=== PATIENT | male | born 1940 | race Caucasian/White ===

== ENCOUNTER 2016-06-06 08:31 | Day surgery (SDC) | payer MEDICARE ==
[~2016-06-06] VITALS: Ht 174 cm; Wt 86.9 kg
[~2016-06-06 08:31] MED LIST: FISH1CAP47 PO; IBUP-1324 PO; LEVO175T39 PO; LR 1,000 ML IV SCH; MULT1CAP47 PO; TRIA1CAP35 PO; TURM500C8 PO
--- OUTSIDE RECORDS SUMMARY | 2016-06-06 08:34 | XMS REPORT | Referral Summary ---
Author Organization Unknown Address Unknown Phone Unavailable Care Team Providers Care Drill Press Hand Name Role Phone RogersPat Primary Care Physician [phone] Encounter [facility] [id number] Date(s): 04/14/14 - 04/14/14 [facility], Blayne Cowan, Otolaryngology [address] [place], [place] [address] Discharge Diagnosis: Cancer of thyroid Discharge Disposition: Home or Self Care Attending Physician: James Pruitt MD Admitting Physician: James Pruitt MD Referring Physician: James Pruitt MD Vital Signs No data available for this section Problem List No data available for this section Allergies, Adverse Reactions, Alerts Substance Reaction Severity Status codeine Active Medications ibuprofen 200 mg oral tablet 1 tabs, Oral, q6hr, as needed for pain, 0 Refill(s) Start Date: 08/11/13 Status: Ordered levothyroxine 200 mcg (0.2 mg) oral tablet See Instructions, 1 TABS ORAL DAILY, # 30 tabs, eRx: [facility] [id number] , 1 TABS ORAL DAILY Special Instructions: 1 TABS ORAL DAILY Start Date: 02/08/14 Status: Ordered multivitamin 1 tabs, Daily, 0 Refill(s) Start Date: 08/11/13 Status: Ordered triamterene-hydrochlorothiazide 37.5 mg-25 mg oral tablet See Instructions, 1 TABS ORAL DAILY, # 90 tabs, eRx: [id number] , 1 TABS ORAL DAILY Special Instructions: 1 TABS ORAL DAILY Start Date: 02/14/14 Status: Ordered Results No data available for this section Immunizations Vaccine Date Refusal Reason influenza virus vaccine, inactivated 11/24/13 influenza virus vaccine, live 12/31/12 influenza virus vaccine, live 01/15/12 Procedures Procedure Date Related Diagnosis Body Site Thyroid Social History Social History Type Response Smoking Status Former smoker Assessment and Plan No data available for this section
--- OUTSIDE RECORDS SUMMARY | 2016-06-06 08:34 | XMS REPORT | Referral Summary ---
Author Author [facility] Organization [facility] Address Unknown Phone Unavailable Care Team Providers Care Payer Specialist Name Role Phone Isidro Mcclure Primary Care Physician [phone] Encounter [facility] Date(s): 04/05/15 - 04/05/15 [facility] [place], [address] [place] [address] Discharge Disposition: 01-Home or Self Care Attending Physician: Isidro Mcclure DO Admitting Physician: Isidro Mcclure DO Vital Signs Most recent to 1 oldest [Reference Range]: Peripheral Pulse 59 bpm Rate [60-100 bpm] *LOW* (04/05/15 9:28 AM) Blood Pressure 150/85 mmHg [90-140/60-90 mmHg] *HI* (04/05/15 9:28 AM) SpO2 98 % (04/05/15 9:28 AM) Problem List No Known Problems Allergies, Adverse Reactions, Alerts Substance Reaction Severity Status codeine Active Medications cyclobenzaprine 10 mg oral tablet 10 mg 1 tabs, Oral, Bedtime (once a day), as needed for spasm, X 30 days, # 30 tabs, 0 Refill(s), Pharmacy: [id number], 1 tabs Oral Bedtime ( once a day),x30 days,PRN:as needed for spasm Start Date: 04/05/15 Stop Date: 05/05/15 Status: Ordered ibuprofen 200 mg oral tablet 1 tabs, Oral, q6hr, as needed for pain, 0 Refill(s) Start Date: 08/11/13 Status: Ordered levothyroxine 200 mcg (0.2 mg) oral tablet 200 mcg 1 tabs, Oral, Daily, X 90 days, # 90 tabs, 3 Refill(s), Pharmacy: [id number], 1 tabs Oral Daily,x90 days Start Date: 04/05/15 Stop Date: 03/30/16 Status: Ordered meloxicam 15 mg oral tablet 15 mg 1 tabs, Oral, Daily, # 30 tabs, 0 Refill(s), Pharmacy: [facility] [id number], 1 tabs Oral Daily Start Date: 04/05/15 Status: Ordered multivitamin 1 tabs, Daily, 0 Refill(s) Start Date: 08/11/13 Status: Ordered triamterene-hydrochlorothiazide 37.5 mg-25 mg oral tablet 1 tabs, Oral, Daily, # 90 tabs, 3 Refill(s), Pharmacy: [facility] [id number] Start Date: 04/05/15 Status: Ordered Results Hematology Most recent to 1 oldest [Reference Range]: WBC [4.8-10.8 6.0 10*3/uL 10*3/uL] (04/05/15 10:20 AM) RBC [4.60-6.20] 5.04 (04/05/15 10:20 AM) Hgb [14.0-18.0 16.0 gm/dL gm/dL] (04/05/15 10:20 AM) Hct [42.0-52.0 %] 46.1 % (04/05/15 10:20 AM) MCV [82.0-99.0 fL] 91.5 fL (04/05/15 10:20 AM) MCH [27.0-32.0 pg] 31.7 pg (04/05/15 10:20 AM) MCHC [32.0-36.0 34.7 gm/dL gm/dL] (04/05/15 10:20 AM) RDW [11.5-14.5 %] 13.8 % (04/05/15 10:20 AM) Platelet [150-400 213 10*3/uL 10*3/uL] (04/05/15 10:20 AM) MPV [8.8-14.8 fL] 10.7 fL (04/05/15 10:20 AM) Immature 0.2 % Granulocytes (04/05/15 10:20 AM) [0.0-1.0 %] Neutrophils [51-75 56 % %] (04/05/15 10:20 AM) Lymphocytes [20-46 32 % %] (04/05/15 10:20 AM) Monocytes [4-11 %] 9 % (04/05/15 10:20 AM) Eosinophils [0-4 %] 3 % (04/05/15 10:20 AM) Basophils [0-2 %] 1 % (04/05/15 10:20 AM) Neutro Absolute 3.33 10*3 [1.90-7.00 10*3] (04/05/15 10:20 AM) Lymph Absolute 1.91 10*3 [0.80-3.30 10*3] (04/05/15 10:20 AM) Dodge Absolute 0.53 10*3 [0.30-1.00 10*3] (04/05/15 10:20 AM) Eos Absolute 0.17 10*3 [0.00-0.50 10*3] (04/05/15 10:20 AM) Baso Absolute 0.05 10*3 [0.00-0.20 10*3] (04/05/15 10:20 AM) Chemistry Most recent to 1 oldest [Reference Range]: Sodium Lvl [135-144 140 mEq/L mEq/L] (04/05/15 10:20 AM) Potassium Lvl 4.2 mEq/L [3.5-5.2 mEq/L] (04/05/15 10:20 AM) Chloride [99-111 105 mEq/L mEq/L] (04/05/15 10:20 AM) CO2 [23-31 mEq/L] 28 mEq/L (04/05/15 10:20 AM) AGAP [3-20] 7 (04/05/15 10:20 AM) BUN [8-26 mg/dL] 22 mg/dL (04/05/15 10:20 AM) Glucose Lvl [70-99 99 mg/dL mg/dL] (04/05/15 10:20 AM) Creatinine Lvl 1.06 mg/dL [0.72-1.25 mg/dL] (04/05/15 10:20 AM) eGFR [>60 mL/min] >60 mL/min 1 (04/05/15 10:20 AM) Calcium Lvl 9.8 mg/dL [8.9-10.5 mg/dL] (04/05/15 10:20 AM) Albumin Lvl [3.4-4.8 4.6 gm/dL gm/dL] (04/05/15 10:20 AM) Total Protein 7.2 gm/dL [6.2-8.1 gm/dL] (04/05/15 10:20 AM) Globulin [1.8-4.0 2.6 gm/dL gm/dL] (04/05/15 10:20 AM) ALT [0-55 U/L] 37 U/L (04/05/15 10:20 AM) AST [5-34 U/L] 39 U/L *HI* (04/05/15:20 AM) Alk Phos [40-150 74 U/L U/L] (04/05/15:20 AM) Bili Total [0.2-1.2 0.9 mg/dL mg/dL] (04/05/15:20 AM) Chol [0-199 mg/dL] 201 mg/dL *HI* (04/05/15:20 AM) Trig [0-149 mg/dL] 96 mg/dL (04/05/15 10:20 AM) HDL [40-84 mg/dL] 61 mg/dL (04/05/15:20 AM) LDL [0-130 mg/dL] 121 mg/dL (04/05/15 10:20 AM) VLDL Cholesterol 19 mg/dL [0-28 mg/dL] (04/05/15:20 AM) Cardiac Risk 3.3 [0.0-5.7] (04/05/15 10:20 AM) T4 Free [0.7-1.5 1.3 ng/dL ng/dL] (04/05/15 10:20 AM) TSH with Reflex Free 0.08 T4 [0.35-4.94] *LOW* (04/05/15 10:20 AM) Hgb A1c [4.1-5.6 %] 5.5 % (04/05/15 10:20 AM) eAvg Glucose 111.2 mg/dL (04/05/15 10:20 AM) 1Result Comment: Multiply eGFR results by 1.21 for race. 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 EGD showed duodenal ulcer. Colonoscopy showed a tubular adenoma. 4He was rehospitalized with bleeding duodenal ulcer. Social History Social History Type Response Smoking Status Former smoker Assessment and Plan Extracted from: Title: Wellness visit, Author: Isidro Mcclure DO Date: 04/05/15 hypertension, hypothyroidism Assessment/Plan Adult onset hypothyroidism 1. TSH ordered today, we will adjust medication accordingly. 2. Prescription was refilled for a year. Ordered: TSH with Reflex Free T4 HTN (hypertension) 1. Blood pressure is a bit elevated today. 2. The pressure medication was refilled today, recommended following up in one month for reevaluation. 3. Low salt diet recommended. Low back pain 1. Back pain appears to be muscular in nature. 2. Discontinue Aleve. 3. Meloxicam 15 mg daily for 2-4 weeks. 4. Cyclobenzaprine 10 mg at bedtime for 2-4 weeks. 5. Warm compression and stretching exercises recommended. Ordered: cyclobenzaprine, 10 mg 1 tabs, Oral, Bedtime (once a day), as needed for spasm , X 30 days, # 30 tabs, 0 Refill(s), Pharmacy: [facility] [id number], 1 tabs Oral Bedtime (once a day),x30 days,PRN:as needed for spasm meloxicam, 15 mg 1 tabs, Oral, Daily, # 30 tabs, 0 Refill(s), Pharmacy: [facility] [id number], 1 tabs Oral Daily Visit for well man health check 1. This is a well-developed well-nourished 75-year-old gentleman who appears to be younger than his age. 2. Continue with healthy lifestyle changes. 3. Continue with daily exercise activity. 4. Screening labs ordered, report pending. 5. Follow-up yearly for wellness visit. Ordered: CBC w/ Differential Comprehensive Metabolic Panel Hemoglobin A1c Lipid Panel Periodic Comp Preventive Med 65+ years Est [address] Orders: levothyroxine, 200 mcg 1 tabs, Oral, Daily, X 90 days, # 90 tabs, 3 Refill(s), Pharmacy: [facility] [id number], 1 tabs Oral Daily,x90 days triamterene-hydrochlorothiazide, 1 tabs, Oral, Daily, # 90 tabs, 3 Refill(s), Pharmacy: [facility] [id number]
--- OUTSIDE RECORDS SUMMARY | 2016-06-06 08:34 | XMS REPORT | Referral Summary ---
Author Author [facility] Organization [facility] Address Unknown Phone Unavailable Care Team Providers Care Line Service Technician Name Role Phone Isidro Mcclure Primary Care Physician [phone] Encounter [facility] Date(s): 10/06/14 - 10/06/14 [facility] Internal Medicine [address] [place] [address] [place] [id number] Discharge Diagnosis: Allergic contact dermatitis Discharge Diagnosis: Essential hypertension Discharge Diagnosis: History of thyroid cancer Discharge Diagnosis: Personal history of colonic polyps Discharge Disposition: 01-Home or Self Care Attending Physician: Damaso Rogers MD Admitting Physician: Damaso Rogers MD Vital Signs Most recent to 1 oldest [Reference Range]: Temperature Tympanic 37.0 degC [36.6-38.1 degC] (10/06/14 8:52 AM) Peripheral Pulse 56 bpm Rate [60-100 bpm] *LOW* (10/06/14 8:52 AM) Respiratory Rate 16 br/min [14-20 br/min] (10/06/14 8:52 AM) Blood Pressure 140/80 mmHg [90-140/60-90 mmHg] (10/06/14 8:52 AM) Problem List No Known Problems Allergies, Adverse Reactions, Alerts Substance Reaction Severity Status codeine Active Medications cyclobenzaprine 10 mg oral tablet 10 mg 1 tabs, Oral, Bedtime (once a day), as needed for spasm, X 30 days, # 30 tabs, 0 Refill(s), Pharmacy: [id number], 1 tabs Oral Bedtime ( once a day),x30 days,PRN:as needed for spasm Start Date: 04/05/15 Stop Date: 05/05/15 Status: Ordered ibuprofen 200 mg oral tablet 1 tabs, Oral, q6hr, as needed for pain, 0 Refill(s) Start Date: 08/11/13 Status: Ordered levothyroxine 200 mcg (0.2 mg) oral tablet 200 mcg 1 tabs, Oral, Daily, takie 1/2 tab 3 days/wk and 1 tab rest of week., X 90 days, # 90 tabs, 3 Refill(s), Pharmacy: [email or web address] [id number], 1 tabs Oral Daily,x90 days Start Date: 04/05/15 Stop Date: 03/30/16 Status: Ordered meloxicam 15 mg oral tablet 15 mg 1 tabs, Oral, Daily, # 30 tabs, 0 Refill(s), Pharmacy: [email or web address] [id number], 1 tabs Oral Daily Start Date: 04/05/15 Status: Ordered multivitamin 1 tabs, Daily, 0 Refill(s) Start Date: 08/11/13 Status: Ordered triamterene-hydrochlorothiazide 37.5 mg-25 mg oral tablet 1 tabs, Oral, Daily, # 90 tabs, 3 Refill(s), Pharmacy: [email or web address] [id number] Start Date: 04/05/15 Status: Ordered Results No data available for [...] for papillary thyroid 2005 carcinoma Esophagogastroduodenoscopy, colonoscopy3 2004 Gastrointestinal bleeding4 2003 Back fusion 1984 Hemorrhoidectomy 1Partial synovectomy and chondroplasty of the patellofemoral joint 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 EGD showed duodenal ulcer. Colonoscopy showed a tubular adenoma. 4He was rehospitalized with bleeding duodenal ulcer. Social History Social History Type Response Smoking Status Former smoker Assessment and Plan Extracted from: Title: Ambulatory Patient Education Author: Damaso Rogers MD Date: Family Medicine Hypertension Hypertension, commonly called high blood pressure, is when the force of blood pumping through your arteries is too strong. Your arteries are the blood vessels that carry blood from your heart throughout your body. A blood pressure reading consists of a higher number over a lower number, such as 110/72. The higher number (systolic) is the pressure inside your arteries when your heart pumps. The lower number (diastolic) is the pressure inside your arteries when your heart relaxes. Ideally you want your blood pressure below 120/80. Hypertension forces your heart to work harder to pump blood. Your arteries may become narrow or stiff. Having hypertension puts you at risk for heart disease, stroke, and other problems. RISK FACTORS Some risk factors for high blood pressure are controllable. Others are not. Risk factors you cannot control include: Race. You may be at higher risk if you are . Age. Risk increases with age. Gender. Men are at higher risk than women before age 45 years. After age 65 , women are at higher risk than men. Risk factors you can control include: Not getting enough exercise or physical activity. Being overweight. Getting too much fat, sugar, calories, or salt in your diet. Drinking too much alcohol. SIGNS AND SYMPTOMS Hypertension does not usually cause signs or symptoms. Extremely high blood pressure (hypertensive crisis) may cause headache, anxiety, shortness of breath , and nosebleed. DIAGNOSIS To check if you have hypertension, your health care provider will measure your blood pressure while you are seated, with your arm held at the level of your heart. It should be measured at least twice using the same arm. Certain conditions can cause a difference in blood pressure between your right and left arms. A blood pressure reading that is higher than normal on one occasion does not mean that you need treatment. If one blood pressure reading is high, ask your health care provider about having it checked again. TREATMENT Treating high blood pressure includes making lifestyle changes and possibly taking medication. Living a healthy lifestyle can help lower high blood pressure. You may need to change some of your habits. Lifestyle changes may include: Following the DASH diet. This diet is high in fruits, vegetables, and whole grains. It is low in salt, red meat, and added sugars. Getting at least 2 1/2 hours of brisk physical activity every week. Losing weight if necessary. Not smoking. Limiting alcoholic beverages. Learning ways to reduce stress. If lifestyle changes are not enough to get your blood pressure under control, your health care provider may prescribe medicine. You may need to take more than one. Work closely with your health care provider to understand the risks and benefits. HOME CARE INSTRUCTIONS Have your blood pressure rechecked as directed by your health care provider. Only take medicine as directed by your health care provider. Follow the directions carefully. Blood pressure medicines must be taken as prescribed. The medicine does not work as well when you skip doses. Skipping doses also puts you at risk for problems. Do not smoke. Monitor your blood pressure at home as directed by your health care provider. SEEK MEDICAL CARE IF: You think you are having a reaction to medicines taken. You have recurrent headaches or feel dizzy. You have swelling in your ankles. You have trouble with your vision. SEEK IMMEDIATE MEDICAL CARE IF: You develop a severe headache or confusion. You have unusual weakness, numbness, or feel faint. You have severe chest or abdominal pain. You vomit repeatedly. You have trouble breathing. MAKE SURE YOU: Understand these instructions. Will watch your condition. Will get help right away if you are not doing well or get worse. Document Released: 2006 Document Revised: 02/01/2014 Document Reviewed: ExitCare Patient Information 2015 DOZ. This information is not intended to replace advice given to you by your health care provider. Make sure you discuss any questions you have with your health care provider. Follow Up With: Where: When: Damaso Rogers [address] [place] [address] Drive; [place] [address] Business ([employer] In 6 months 04/08/2015 Comments: Extracted from: Title: Office Visit Note Author: Damaso Rogers MD Date: 10/06/14 Assessment/Plan Allergic contact dermatitis Some of these areas may also be insect bites. He was advised to use hydrocortisone cream as needed. Essential hypertension He will resume generic Maxide 25 one pill daily. He will be scheduled for chemistry panel next month. Ordered: Comprehensive Metabolic Panel History of thyroid cancer He will continue with his thyroid ultrasound and blood tests next month. Personal history of colonic polyps He is due for repeat colonoscopy. He will be contacted later in this regard. Orders: triamterene-hydrochlorothiazide, 1 tabs, Oral, Daily, # 90 tabs, 1 Refill(s), [id number]
--- OUTSIDE RECORDS SUMMARY | 2016-06-06 08:34 | XMS REPORT | Referral Summary ---
Author Author [facility] [address] [facility] Otol[facility]ology Organization [facility] Address Unknown Phone Unavailable Care Team Providers Care Cotton Ball Machine Tender Name Role Phone Pat Rogers Primary Care Physician [phone] Encounter [facility] [id number] Date(s): 10/18/14 - 10/18/14 [facility] [address], Otolaryngology [address] [place], [place] [address] Discharge Diagnosis: Cicatrix Discharge Diagnosis: Radiation effect Discharge Diagnosis: Thyroid cancer Discharge Diagnosis: Vocal cord paresis Discharge Disposition: 01-Home or Self Care Attending Physician: James Pruitt MD Admitting Physician: James Pruitt MD Vital Signs No data available for this section Problem List No Known Problems Allergies, Adverse Reactions, Alerts Substance Reaction Severity Status codeine Active Medications ibuprofen 200 mg oral tablet 1 tabs, Oral, q6hr, as needed for pain, 0 Refill(s) Start Date: 08/11/13 Status: Ordered levothyroxine 200 mcg (0.2 mg) oral tablet See Instructions, 1 TABS ORAL DAILY, # 30 tabs, eRx: [facility] [id number] , 1 TABS ORAL DAILY Start Date: 12/16/14 Status: Ordered multivitamin 1 tabs, Daily, 0 Refill(s) Start Date: 08/11/13 Status: Ordered triamterene-hydrochlorothiazide 37.5 mg-25 mg oral tablet 1 tabs, Oral, Daily, # 90 tabs, 1 Refill(s), Pharmacy: [facility] [id number] Start Date: 10/06/14 Status: Ordered Results Chemistry Most recent to 1 oldest [Reference Range]: T4 Free [0.7-1.5 1.4 ng/dL ng/dL] (10/18/14 3:45 PM) TSH with Reflex Free 0.01 T4 [0.35-4.94] *LOW* (10/18/14 3:45 PM) Thyroglob Ab [0-5 <3 Intl Units/mL Intl Units/mL] (10/18/14 3:45 PM) Immunizations Vaccine Date Refusal Reason influenza virus vaccine, inactivated 11/24/13 influenza virus vaccine, live 12/31/12 influenza virus vaccine, live 01/15/12 Procedures Procedure Date Related Diagnosis Body Site Laryngoscopy, flexible fiberoptic; diagnostic 10/18/14 Left knee Arthroscopy, partial meniscectomy, 2009 chondroplasty Colonoscopy- adenomatous polyp 2008 Arthroscopy right knee with partial lateral 2007 meniscectomy1 Functional left Neck dissection with 2008 [...] smoker Assessment and Plan Extracted from: Title: Office Visit Note Author: James Pruitt MD Date: 10/18/14 Assessment/Plan 1.Vocal cord paresis 2.Cicatrix 3.Radiation effect Thyroid cancer Repeat thyroid bed sonogram and laboratory assessment recommended. He is to call the office for results. If he has stable findings, then another followup in 6-12 months will be recommended. A detailed discussion of the risks, benefits, and limitations of the treatment plan was performed with the patient. The patient had the opportunity to ask questions and appeared to understand the pertinent issues. Ordered: Free T4 Thyroglobulin Antibody TSH with Reflex Free T4 US Thyroid
--- OUTSIDE RECORDS SUMMARY | 2016-06-06 08:34 | XMS REPORT | Referral Summary ---
Author Author [facility] Organization [facility] Address Unknown Phone Unavailable Care Team Providers Care Outplacement Consultant Name Role Phone Isidro Mcclure Primary Care Physician [phone] Encounter [facility] Date(s): 07/13/15 - 07/13/15 [facility], [address] [place] [address] Discharge Disposition: 01-Home or Self Care Attending Physician: Isidro Mcclure DO Admitting Physician: Isidro Mcclure DO Vital Signs Most recent to 1 oldest [Reference Range]: Temperature Tympanic 36.2 degC [36.6-38.1 degC] *LOW* (07/13/15 2:18 PM) Apical Heart Rate 72 bpm [60-100 bpm] (07/13/15 2:18 PM) Blood Pressure 132/86 mmHg [90-140/60-90 mmHg] (07/13/15 2:18 PM) SpO2 95 % (07/13/15 2:18 PM) Problem List No Known Problems Allergies, Adverse Reactions, Alerts Substance Reaction Severity Status codeine Active Medications ibuprofen 200 mg oral tablet 1 tabs, Oral, q6hr, as needed for pain, 0 Refill(s) Start Date: 08/11/13 Status: Ordered levothyroxine 150 mcg (0.15 mg) oral tablet See Instructions, TAKE 1 TABLET BY MOUTH DAILY, # 90 tabs, eRx: [facility] [id number], TAKE 1 TABLET BY MOUTH DAILY Start Date: 05/19/15 Status: Ordered meloxicam 15 mg oral tablet 15 mg 1 tabs, Oral, Daily, # 30 tabs, 0 Refill(s), Pharmacy: [facility] [id number], 1 tabs Oral Daily Start Date: 04/05/15 Status: Ordered multivitamin 1 tabs, Daily, 0 Refill(s) Start Date: 08/11/13 Status: Ordered triamterene-hydrochlorothiazide 37.5 mg-25 mg oral tablet 1 tabs, Oral, Daily, # 90 tabs, 3 Refill(s), Pharmacy: [facility] [id number] Start Date: 07/13/15 Status: Ordered Ultram 50 mg oral tablet 50 mg 1 tabs, Oral, q6hr, as needed for pain, # 30 tabs, 0 Refill(s) Start Date: 07/13/15 Stop Date: 08/12/15 Status: Ordered Results No data available for this section Immunizations Vaccine Date Refusal Reason influenza virus vaccine, inactivated 11/24/13 influenza virus vaccine, live 12/31/12 influenza virus vaccine, live 01/15/12 Procedures Procedure Date Related Diagnosis Body Site Left knee Arthroscopy, partial meniscectomy, 2010 chondroplasty Colonoscopy- adenomatous polyp 2008 Arthroscopy right knee with partial lateral 2008 meniscectomy1 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
--- OUTSIDE RECORDS SUMMARY | 2016-06-06 08:34 | XMS REPORT | Continuity of Care Document ---
Author Author [facility] Organization [facility] Address Unknown Phone Unavailable Allergies Active Description Code Type Severity Reaction Onset Reported/Identified Relationship to Patient Clinical Status Yes codeine NKMA N/A N/A 06/10/2013 Medications Problems Procedures Results Encounters ACCT No. Visit Date/Time Discharge Status Pt. Type Provider Facility Loc./Unit Complaint [id number] 05/22/2016 13:10:00 2016 23:59:00 DIS Outpatient Lee Zepeda [facility] New Surg BLOOD IN STOOL FROM INSURANCE CO TEST [id number] 04/03/2016 14:14:00 2016 23:59:00 DIS Outpatient Isidro Mcclure [facility] New FM follow up stool test [id number] 03/01/2016 09:44:00 2016 23:59:00 DIS Outpatient Isidro Mcclure [facility] New FM 1 month HTN [id number] 01/30/2016 16:35:00 2015 23:59:00 DIS Outpatient Isidro Mcclure [facility] New FM TCPA HIGH BP [id number] 07/13/2015 14:11:00 2015 23:59:00 DIS Outpatient Isidro Mcclure [facility] New FM BACK PAIN AND MED CHECK [id number] 04/05/2015 09:24:00 2015 23:59:00 DIS Outpatient Isidro Mcclure [facility] New FM NPT EST CARE FROM DR WINN [id number] 10/18/2014 14:46:00 2014 23:59:00 DIS Outpatient James Pruitt [facility] FC ENT [place] THYROID [place] [id number] 10/06/2014 08:49:00 2014 23:59:00 DIS [facility] [id number] 01/05/2014 11:23:00 2013 23:59:00 DIS Outpatient Merlin Salinas [facility] C Mur En SOV/FU
--- OUTSIDE RECORDS SUMMARY | 2016-06-06 08:34 | XMS REPORT | Referral Summary ---
Author Author [facility] Organization [facility] Address Unknown Phone Unavailable Care Team Providers Care Community Health Coordinator Name Role Phone Anuamisha Isidro Primary Care Physician [phone] Encounter [facility] [id number] Date(s): 10/18/14 - 10/18/14 [facility] [address] [place], [place] [address] Discharge Diagnosis: Cicatrix Discharge Diagnosis: Radiation effect [...] days, # 30 tabs, 0 Refill(s), Pharmacy: [facility] [id number], 1 tabs Oral Bedtime ( once a [...] days, # 90 tabs, 3 Refill(s), Pharmacy: [facility] [id number], 1 tabs Oral Daily,x90 days Start Date: 04/05/15 Stop Date: 03/30/16 Status: Ordered meloxicam 15 mg oral tablet 15 mg 1 tabs, Oral, Daily, # 30 tabs, 0 Refill(s), Pharmacy: [facility] [id number], 1 tabs Oral Daily Start Date: 04/05/15 Status: Ordered multivitamin 1 tabs, Daily, 0 Refill(s) Start Date: 08/11/13 Status: Ordered triamterene-hydrochlorothiazide 37.5 mg-25 mg oral tablet 1 tabs, Oral, Daily, # 90 tabs, 3 Refill(s), Pharmacy: [facility] [id number] Start Date: 04/05/15 Status: Ordered Results Chemistry Most recent to [...] diagnostic 10/18/14 Left knee Arthroscopy, partial meniscectomy, 2010 chondroplasty Colonoscopy- adenomatous polyp 2009 Arthroscopy right knee with partial lateral 2008 meniscectomy1 Functional left Neck dissection with 2008 sternomastoid musculature flap2 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 EGD showed duodenal ulcer. Colonoscopy showed a tubular adenoma. 4He was rehospitalized with bleeding duodenal ulcer. Social History Social History Type Response Smoking Status Former smoker Assessment and Plan Extracted from: Title: Office Visit Note Author: aJmes Pruitt MD Date: 10/18/14 Assessment/Plan 1.Vocal cord [...]
--- OUTSIDE RECORDS SUMMARY | 2016-06-06 08:34 | XMS REPORT | Referral Summary ---
Author Author [facility] Organization [facility] Address Unknown Phone Unavailable Care Team Providers Care Saddle Stitching Machine Operator Name Role Phone Isidro Mcclure Primary Care Physician [phone] Encounter [facility] Date(s): 04/03/16 - 04/03/16 [facility] [address] [place] [id number] Discharge Diagnosis: Positive fecal occult blood test Discharge Diagnosis: Itching Discharge Disposition: 01-Home or Self Care Attending Physician: Isidro Mcclure DO Admitting Physician: Isidro Mcclure DO Vital Signs Most recent to 1 oldest [Reference Range]: Temperature Tympanic 36.8 degC [36.6-38.1 degC] (04/03/16 2:18 PM) Peripheral Pulse 86 bpm Rate [60-100 bpm] (04/03/16 2:18 PM) Respiratory Rate 18 br/min [14-20 br/min] (04/03/16 2:18 PM) Blood Pressure 128/76 mmHg [90-140/60-90 mmHg] (04/03/16 2:18 PM) SpO2 92 % (04/03/16 2:18 PM) Problem List No Known Problems Allergies, Adverse Reactions, Alerts Substance Reaction Severity Status codeine Active Medications hydrOXYzine hydrochloride 25 mg oral tablet 25 mg 1 tabs, Oral, q8hr, as needed for itching, # 40 tabs, 0 Refill(s), Pharmacy: [id number], 1 tabs Oral q8hr,PRN:as needed for itching Start Date: 04/03/16 Stop Date: 05/01/16 Status: Ordered ibuprofen 200 mg oral tablet 1 tabs, Oral, q6hr, as needed for pain, 0 Refill(s) Start Date: 08/11/13 Status: Ordered levothyroxine 150 mcg (0.15 mg) oral tablet See Instructions, TAKE 1 TABLET BY MOUTH DAILY, # 90 tabs, 5 Refill(s), Pharmacy : [facility] [id number], TAKE 1 TABLET BY MOUTH DAILY Start Date: 04/03/16 Status: Ordered multivitamin 1 tabs, Daily, 0 Refill(s) Start Date: 08/11/13 Status: Ordered triamterene-hydrochlorothiazide 37.5 mg-25 mg oral tablet 1 tabs, Oral, Daily, # 90 tabs, 3 Refill(s), Pharmacy: [facility] [id number] Start Date: 04/03/16 Status: Ordered Results No data available for this section Immunizations Given and Recorded Vaccine Date Status Refusal Reason influenza virus vaccine, inactivated 11/24/13 Recorded influenza virus vaccine, live 12/31/12 Given influenza virus vaccine, live 01/15/12 Given zoster vaccine live 04/03/16 Given Procedures Procedure Date Related Diagnosis Body Site Left knee Arthroscopy, partial meniscectomy, 2010 chondroplasty Colonoscopy- adenomatous polyp 2008 Arthroscopy right knee with partial lateral 2008 meniscectomy1 Functional left Neck dissection with 2008 sternomastoid musculature flap2 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 This is likely secondary to dry skin and mild eczema. 2. Hydroxyzine 25 mg Q 8 hrs as needed for itching. 3. Follow up if worsening presentation. Ordered: hydrOXYzine, 25 mg 1 tabs, Oral, q8hr, as needed for itching, # 40 tabs, 0 Refill(s), Pharmacy: [facility] [id number], 1 tabs Oral q8hr,PRN:as needed for itching Office Visit Level 4 Est 77000 Need for shingles vaccine 1. Immunizations given today. Positive fecal occult blood test 1. We will set him up for repeat screening C-scope with Dr Pozo. Ordered: hydrOXYzine, 25 mg 1 tabs, Oral, q8hr, as needed for itching, # 40 tabs, 0 Refill(s), Pharmacy: [facility], 1 tabs Oral q8hr,PRN:as needed for itching Office Visit Level 4 Est 89645
--- OUTSIDE RECORDS SUMMARY | 2016-06-06 08:34 | XMS REPORT | Referral Summary ---
Author Author [facility] Organization [facility] Address Unknown Phone Unavailable Care Team Providers Care Television Maintenance Worker Name Role Phone Pat Rogers Primary Care Physician [phone] Encounter [facility] [id number] Date(s): 10/18/14 - 10/18/14 [facility] [address] [place], [place] [address] Discharge Diagnosis: Cicatrix Discharge Diagnosis: Radiation [...] TABS ORAL DAILY, # 30 tabs, eRx: [facility] [id number] , 1 TABS ORAL DAILY Start Date: 12/16/14 Status: Ordered multivitamin 1 tabs, Daily, 0 Refill(s) Start Date: 08/11/13 Status: Ordered triamterene-hydrochlorothiazide 37.5 mg-25 mg oral tablet 1 tabs, Oral, Daily, # 90 tabs, 1 Refill(s), Pharmacy: [facility] [id number] Start Date: 10/06/14 Status: Ordered Results Chemistry [...]
--- OUTSIDE RECORDS SUMMARY | 2016-06-06 08:34 | XMS REPORT | Summary of Care ---
Author Author Geovanna Juares APRN Organization Unknown Address [address] [place], [place] [address] Phone Unavailable Care Team Providers Care Sweet Pickle Maker Name Role Phone Geovanna Juares APRN Unavailable Unavailable Outside, Physician PP Unavailable Unavailable Unavailable Functional Status Functional Status Health Issues* Name Dates Details Functional status health issues are not documented Status: Cognitive Status Health Issues* Name Dates Details Cognitive status health issues are not documented Status: Problems Name Dates Details Acute upper respiratory infection (465.9, J06.9) Status: Active Medications Name Dates Details Levothyroxine Sodium TABS * Started 08-Jun-2015 ActiveAzithromycin 250 MG Oral Tablet TAKE 2 TABLETS ON DAY 1 THEN TAKE 1 TABLET A DAY FOR 4 DAYS. * Quantity: 1 Refills: 0 Geovanna Juares APRN* Started 08-Jun-2015 Active6 Tablet Disp Pack PredniSONE 20 MG Oral Tablet TAKE 3 TABLETS DAILY FOR 3 DAYS, THEN 2 TABLETS DAILY FOR 3 DAYS, THEN 1 TABLET DAILY FOR 3 DAYS. * Quantity: 18 Refills: 0 Geovanna Juares APRN* Started 08-Jun-2015 Active Allergies and Adverse Reactions Name Dates Details Codeine Derivatives Status: Active Procedures Procedure Dates Details Procedures not documented Immunization Name Dates Details Immunizations not documented Social History Smoking Status* Unknown if ever smoked Vital Signs Date Test Result Details 08-Jun-2015 09:43 BP Systolic 172 mm[Hg] Status: BP Diastolic 100 mm[Hg] Status: Temperature 98.4 f Status: Heart Rate 68 /min Status: O2 SAT 96 % Status: Results Date Description Value Details Results not documented Plan of Care Planned Observations* Name Dates Details Planned Goals not documented Goal Instructions * Instructions not documented Encounters Appointment; Geovanna Juares Encounter Diagnosis: Problem not documented On 08-Jun-2015 09:34
--- OUTSIDE RECORDS SUMMARY | 2016-06-06 08:34 | XMS REPORT | Summary of Care ---
Author Author Stephanie Burgess APRN Organization Unknown Address [address] [place], [place] [id number] Phone Unavailable Care Team Providers Care Med Asst Name Role Phone Stephanie Burgess APRN Unavailable Unavailable PCP Not Assigned Unavailable Unavailable Unavailable Unavailable Functional Status Name Dates Details Functional status health issues are not documented Status: Name Dates Details Cognitive status health issues are not documented Status: Problems Name Dates Details Acute sinusitis (461.9, J01.90) Status: Active Medications Name Dates Details Levothyroxine Sodium TABS * Start 08-Jun-2015 Active Azithromycin 250 MG Oral Tablet TAKE 2 TABLETS ON DAY 1 THEN TAKE 1 TABLET A DAY FOR 4 DAYS. * Quantity: 1 Refills: 0 Stephanie Burgess APRN * Start 25-Jan-2016 Active 6 Tablet Disp Pack Allergies and Adverse Reactions Name Dates Details Codeine Derivatives (Allergy) Status: Active Procedures Procedure Dates Details Procedures not documented Immunization Name Dates Details Immunizations not documented Social History Name Dates Details Unknown if ever smoked Vital Signs Date Test Result Details 25-Jan-2016 16:30 BP Systolic 162 mm[Hg] Status: Comments: Location: ; Position: BP Diastolic 100 mm[Hg] Status: Comments: Location: ; Position: Temperature 98.2 f Status: Comments: Method: Heart Rate 63 /min Status: Comments: Location: ; Physical Findings 95 Status: Comments: O2 Saturation Results Date Description Value Details Results not documented Plan of Care Name Dates Details Planned Observations Planned Goals not documented Interventions Provided Medication Changes* Azithromycin 250 MG Oral Tablet - Start Instructions Name Dates Details Instructions not documented Encounters Appointment; Geovanna Juares A.P.R.N. Encounter Diagnosis: Problem not documented On 08-Jun-2015 09:34
--- OUTSIDE RECORDS SUMMARY | 2016-06-06 08:35 | XMS REPORT | Referral Summary ---
Author Author [facility] Organization [facility] Address Unknown Phone Unavailable Care Team Providers Care Lithography Contact Worker Name Role Phone Pat Rogers Primary Care Physician [phone] Encounter [facility] [id number] Date(s): 10/18/14 - 10/18/14 [facility] [address] [place], [place] [address] Discharge Diagnosis: Cicatrix Discharge Diagnosis: [...] TABS ORAL DAILY, # 30 tabs, eRx: [facility] [id number] , 1 TABS ORAL DAILY Start Date: 12/16/14 Status: Ordered multivitamin 1 tabs, Daily, 0 Refill(s) Start Date: 08/11/13 Status: Ordered triamterene-hydrochlorothiazide 37.5 mg-25 mg oral tablet 1 tabs, Oral, Daily, # 90 tabs, 1 Refill(s), Pharmacy: [facility] [id number] Start Date: 10/06/14 Status: Ordered Results Chemistry [...]
--- OUTSIDE RECORDS SUMMARY | 2016-06-06 08:35 | XMS REPORT | Referral Summary ---
Author Author [facility] Organization [facility] Address Unknown Phone Unavailable Care Team Providers Care Eating Disorder Psychologist Name Role Phone Isidro Mcclure Primary Care Physician [phone] Encounter [facility] Date(s): 03/01/16 - 03/01/16 [facility], [address] [place] [address] Discharge Diagnosis: Chronic back pain Discharge Diagnosis: HTN (hypertension), benign Discharge Disposition: 01-Home or Self Care Attending Physician: Isidro Mcclure DO Admitting Physician: Isidro Mcclure DO Vital Signs Most recent to 1 oldest [Reference Range]: Peripheral Pulse 65 bpm Rate [60-100 bpm] (03/01/16 9:59 AM) Respiratory Rate 18 br/min [14-20 br/min] (03/01/16 9:59 AM) Blood Pressure 124/80 mmHg [90-140/60-90 mmHg] (03/01/16 9:59 AM) SpO2 95 % (03/01/16 9:59 AM) Problem List No Known Problems Allergies, Adverse Reactions, Alerts Substance Reaction Severity Status codeine Active Medications ibuprofen 200 mg oral tablet 1 tabs, Oral, q6hr, as needed for pain, 0 Refill(s) Start Date: 08/11/13 Status: Ordered levothyroxine 150 mcg (0.15 mg) oral tablet See Instructions, TAKE 1 TABLET BY MOUTH DAILY, # 30 tabs, 5 Refill(s), eRx: [id number], TAKE 1 TABLET BY MOUTH DAILY Start Date: 01/03/16 Status: Ordered multivitamin 1 tabs, Daily, 0 Refill(s) Start Date: 08/11/13 Status: Ordered triamterene-hydrochlorothiazide 37.5 mg-25 mg oral tablet 1 tabs, Oral, Daily, # 90 tabs, 3 Refill(s), [id number] Start Date: 07/13/15 Status: Ordered Results No data available for this section Immunizations Given and Recorded Vaccine Date Status Refusal Reason influenza virus vaccine, inactivated 11/24/13 Recorded influenza virus vaccine, live 12/31/12 Given influenza virus vaccine, live 01/15/12 Given Procedures Procedure Date Related Diagnosis Body [...] Visit Note Author: Isidro Mcclure DO Date: 03/01/16 Assessment/Plan 1.HTN (hypertension), benign 1. Blood pressure is controlled at this time. 2. Continue with low salt diet. 3. Continue with current medications. 4. Follow up in 6 months for farther management. Ordered: Office Visit Level 4 Est 23039 2.Chronic back pain 1. Continue with Tylenol 1000mg tid as needed for pay. 2. Consider PT if not improving. Ordered: Office Visit Level 4 Est 53921
[2016-06-06 08:42] VITALS: BP 178/103; PULSE 82; RESP 16; TEMP 98.3; O2SAT 93; Ht 174 cm; Wt 86.9 kg
[2016-06-06] MEDS ORDERED: LIDOCAINE 1% (10mg/ml) 2ml SDV ONE ×2 (09:41→11:04)
[2016-06-06] MEDS ORDERED: PROPOFOL 500mg 0 ML IV ONE (09:41)
--- NOTE | 2016-06-06 09:55 | ANESPREOP ---
Anesthesia Record Date and Time DATE: 06/06/16 TIME: 09:50 Pre-Op Diagnosis hx. of polyps Proposed Surgical Procedure COLONOSCOPY Allergies: Coded Allergies: codeine (Verified Allergy, Unknown, 06/06/16) Ht/Wt/BMI Height: 5 ' 8.50 " Weight: 86.900 kg BMI: 28.7 kg/m2 Vital Signs Date Time Temp Pulse Resp B/P Pulse Ox O2 Delivery O2 Flow Rate FiO2 06/06/16 08:42 98.3 82 16 178/103 93 Room Air Medications Inpatient Medications Current Medications Medications (Trade) Dose Ordered Sig/Juanpablo Start Time Stop Time Status Last Admin Dose Admin Lactated Ringer's (Lactated Ringers) 1,000 ml @ 30 mls/hr Q24H 06/06/16 07:00 06/06/16 09:28 30 MLS/HR Fish Oil/[place]-3 Fatty Acids (Fish Oil 1,200 Mg Softgel) 1 Cap Capsule, 1 CAP PO DAILY, (Reported) Last Taken: on Unknown Date & Time Ibuprofen (Ibuprofen) 200 Mg Tablet, 200 MG PO PRN, (Reported) Last Taken: on 06/03/16 Levothyroxine Sodium (Synthroid) 175 Mcg Tablet, 175 MCG PO DAILY, (Reported) Last Taken: on 06/06/16 0730 Multivitamins W-Minerals (Multivitamin) 1 Cap Capsule, 1 CAP PO DAILY, (Reported) Last Taken: on Unknown Date & Time Triamterene/Hydrochlorothiazid ( Triamterene-Hctz 37.5-25 Cp) 1 Cap Capsule, 1 CAP PO DAILY, (Reported) Last Taken: on 06/05/16 0700 Turmeric Root Extract (Turmeric) 500 Mg Capsule , 1-3 CAP PO DAILY, (Reported) Last Taken: on Unknown Date & Time Currently on Beta Dagoberto: No Medical/Surgical History Anesthesia PMH: Reports: *Hypertension, Arthritis (HANDS,LOWER BACK), Cancer ( THYROID), Obesity, Thyroid Disease (THYROID CANCER), Denies: *Angina, *Diabetes , *PR, Anesthesia Reactions (NO AIRWAY ISSUES), CHF, Clotting Problems, Deep Vein Thrombosis, Glaucoma, Hepatitis, Hiatal Hernia, Malignant Hyperthermia, Reflux, Renal Disease, Rheumatic Fever, Sleep Apnea Smoking Status: Former smoker Has pt. smoked today?: No Use Chewing Tobacco?: No Second Hand Exposure: No Substance Use Type: does not use Substance last used: unknown Alcohol Intake: daily Last Drink: unknown Past Surgical History Orthopedic Surgeries: Yes - BACK SURGERY,RT KNEE SCOPE Abdominal Surgeries: Genitourinary Surgeries: Cardiac Surgeries: Endocrine Surgeries: Yes - THYROIDECTOMY Reproductive Surgeries: Neurological Surgeries: Ear Surgeries: Nose Surgeries: Throat Surgeries: Yes - THROAT SURGERY X4-MOSTLY THYROID PROBLEMS Other Surgeries: Yes - HEMORRHOIDECTOMY Anesthesia Adverse Reactions: FOUND none Family Hx of Anesthesia Advers: none Hx of Motion Sickness: No Pertinent Findings EKG Rhythm: Sinus Rhythm Physical Exam Respiratory: Bilat breath sounds equal, Lungs clear Cardiovascular: FOUND Regular rate, rhythm, FOUND No murmur Airway Assessment Mallampati Score: II TMD: 2 Fingerbreadths Neck Extension: Fair Teeth: Partial Upper Dentures Overall Assessment: No Airway Concerns ASA: 2 Plan Anesthesia Plan: TIVA Discussion Discussed risks/options/alternatives of anesthesia and questions answered. Patient consents. Nursing pain assessment noted. Present: Spouse Attestation Statement Prior to the delivery of any anesthetic medication, I examined the patient, developed the plan, obtained the patient's consent and discussed the risk and benefits of the procedure with the patient/guardian. SYBIL DOWD CRNA Jun 06, 2016 09:55
[2016-06-06] MEDS ORDERED: PROPOFOL 500mg 50 ML IV ONE (11:04)
[2016-06-06 11:29] VITALS: BP 105/68; PULSE 78; RESP 16; TEMP 98.1; O2SAT 98
[2016-06-06 11:40] VITALS: BP 112/73; PULSE 72; RESP 10; O2SAT 98
[2016-06-06 11:55] VITALS: BP 118/75; PULSE 72; RESP 15; O2SAT 98
--- NOTE | 2016-06-06 12:11 | ANESPO ---
Post-Op Note Date 06/06/16 Time: 12:10 Status Pt Participated in Evaluation: Pt participated in person Vital Signs Date Time Temp Pulse Resp B/P Pulse Ox O2 Delivery O2 Flow Rate FiO2 06/06/16 11:55 72 15 118/75 98 Room Air 06/06/16 11:29 98.1 6.00 Respiratory Function: Airway patent, Regular respirations Cardiovascular Function: Regular pulse Mental Status: Alert/oriented Pain Level Intensity: 0 (0) Hydration: Taking po fluids Complications during Recovery None apparent Post-Anesthesia Notes PT. CATY. WELL Follow-Up Instructions Instructions Per Surgeon Additional Information NONE SYBIL DOWD CRNA Jun 06, 2016 12:11
[2016-06-06] MEDS ORDERED: LIDOCAINE 1% (10mg/ml) 2ml SDV INJ ONE (13:00)
--- NOTE | 2016-06-06 20:23 | OPNOTEF ---
DATE OF SERVICE 06/06/2016 SURGEON Lee Pozo MD PREOPERATIVE DIAGNOSIS Personal history of adenomatous colon polyps, history for heme-positive stools. POSTOPERATIVE DIAGNOSES Personal history of adenomatous colon polyps, history for heme-positive stools. Polyps located at 70 cm and mid ascending colon. PROCEDURE Colonoscopy with polypectomies via cold biopsy technique and snare polypectomy technique. ANESTHESIA TIVA. BRIEF HISTORY/INDICATIONS Mr. Balderrama is a 76-year-old gentleman who is well known to my surgical practice. The patient does have a prior history for adenomatous colon polyps. He was recently also found to have heme-positive stools. It has been more than five years since his last endoscopic evaluation of his colon. As a result the above indications it was recommended to the patient that he undergo a colonoscopy for further evaluation. For completeness please refer to notes included in the patient's chart. FINDINGS Upon colonoscopy was no evidence for angiodysplastic lesions, diverticula or toney allergies. The patient was found have a polyp on the order of 8-9 mm in diameter at 70 cm from the anal verge. He was found have a smaller polyp on the order of 5-6 mm in diameter within the mid ascending colon. These polyps were removed in their entirety endoscopically. NARRATIVE OF PROCEDURE After informed consent was obtained the patient was brought to the endoscopy suite and placed on the table in left lateral decubitus position. Patient subsequently underwent total intravenous anesthesia by the nurse committee member at my request. Formal timeout was then completed. Next, a digital rectal exam was performed. Normal sphincter tone. No rectal masses were appreciated. An Olympus colonoscope was inserted into the anus and advanced through the lumen of the colon under direct visualization at all times until the cecum was ascertained. Triangulation of the tenia coli, ileocecal valve and appendiceal lumen were all visualized. The scope was slowly withdrawn. Within the mid ascending colon the patient was found to have a polyp on the order of about 5-6 mm in diameter which was removed in its entirety via cold biopsy technique. The colonoscope was continued to be slowly withdrawn. At 70 cm from the anal verge the patient was found to have an additional polyp that was slightly larger, on the order of about 8-9 mm in diameter. This polyp was removed via snare polypectomy technique and submitted for pathologic evaluation. The colonoscope was continued to be slowly withdrawn. There was no evidence for angiodysplastic lesions, diverticula or toney malignancies. The scope was continued to be withdrawn until it was brought back to the rectal vault. J-maneuver was performed. No worrisome perianal pathology was noted. Scope was allowed to straighten and was withdrawn through the anal verge. Patient tolerated the procedure without difficulty and was sent back to the preop area in stable condition. Will await biopsy results from today's single polypectomies and proceed accordingly with further recommendations thereafter. ADONAY
== END 2016-06-06 12:09 | disposition home or self-care (01) ==
LOC: SCU 08:31
PROVIDERS: ATTEND Surgery
DX: D12.2 Benign neoplasm of ascending colon (principal); D12.6 Benign neoplasm of colon, unspecified; R19.5 Other fecal abnormalities; Z86.010 Personal history of colon polyps; E03.9 Hypothyroidism, unspecified; Z79.1 Long term (current) use of non-steroidal anti-inflammatories (NSAID); Z79.899 Other long term (current) drug therapy; Z87.891 Personal history of nicotine dependence
CPT/HCPCS: 45380; 45385; J7120; 88305

== ENCOUNTER → 2016-06-21 | Outpatient (CLI) | payer MEDICARE ==
[~2016-06-21] MED LIST changes: -LR 1,000 ML IV SCH
--- NOTE | 2016-06-21 16:04 | DI ---
Indication: ITS.REASON: M19.90 OSTEOARTHRITIS HAND BILATERAL 3 VIEW Comparison: None Findings: Bilateral examination hand shows advanced degenerative changes at multiple levels particularly prominent about the first carpal metacarpal joints where there is marked narrowing sclerosis and heterotrophic change. Impression: Multiple degenerated interphalangeal and carpal phalangeal joints are identified as well although no fractures or marked subluxations identified. Bilateral and fairly symmetrical degenerative changes throughout the hands with the most prominent findings at the first carpal metacarpal joints. .
== END ==
LOC: IMA 15:10
PROVIDERS: ATTEND Family Medicine
DX: M19.042 Primary osteoarthritis, left hand (principal); M19.041 Primary osteoarthritis, right hand